=== PATIENT | female | born 1960 | race Caucasian/White ===

== ENCOUNTER 2016-05-16 12:02 | Emergency (ER) | payer OTHER ==
[~2016-05-16] VITALS: Ht 157.5 cm; Wt 54.4 kg
[~2016-05-16 12:02] MED LIST: FLEXERIL PO; IBU800 MG PO; LIORESAL 10MG T10 MG PO; MASON NATURAL2000 IU PO; MEDROL DOSEPAK1 PAC PO; MOBIC 15MG15 MG PO; MOTRIN 800MG T800 MG PO; NORCO 5-325 TA1 EACH PO; OMEGA-31 SGL PO; PERCOCET 325 MG1 TA2 PO; TRAMADOL50 MG PO; ULTRAM(MONOGRAP50 MG PO; VITAMIN C1000 M1 PO
--- NOTE | 2016-05-16 12:59 | ED MVC/FALL/TRAUMA COMPLAINT ---
History of Present Illness General Chief Complaint: Fall Stated Complaint: L ARM/HAND/LEG PAIN S/P FALL Source: patient Exam Limitations: no limitations Vital Signs & Intake/Output Vital Signs & Intake/Output Vital Signs Date Time Temp Pulse Resp B/P Pulse O2 O2 Flow FiO2 Ox Delivery Rate 05/16 1415 98.5 76 18 128/79 98 Room Air 05/16 1210 99.1 90 20 123/78 97 Room Air Allergies Coded Allergies: NO KNOWN ALLERGIES (06/09/15) No Known Drug Allergies (06/09/15) Reconcile Medications No Known Home Medications Triage Note: PER PT SLIPPED AND FELL AT WORK, NO HEAD STRIKE, NO LOC. CO PAIN TO L ARM,, BACK ,L KNEE AND L LEG Triage Nurses Notes Reviewed? yes Onset: Abrupt Duration: constant Timing: single episode today Severity: moderate Severity Numbers: 5 Injuries/Fall Location: upper extremity, back, lower extremity Method of Injury: fall Loss of Consciousness: no loss of consciousness HPI: Patient is a 56-year-old female who presents to emergency room stating that while at work today patient slipped on a wet floor in the kitchen which she braced her fall with her left outstretched hand and fell directly on the lateral aspect of her left knee resulting in pain. Pain is described as 5-10 to the left hand and left lateral right knee. Denies any head strike. Patient can ambulate with mild pain. Patient also states that she twisted her back from the fall resulting in right lateral muscular back pain. (LORENA FISCHER) Past History Travel History Traveled to [place] past 21 day No Medical History Any Pertinent Medical History? 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 No (LORENA FISCHER) Review of Systems Review of Systems Constitutional: Reports: no symptoms. Eyes: Reports: no symptoms. Ears, Nose, Throat, Mouth: Reports: no symptoms. Respiratory: Reports: no symptoms. Cardiovascular: Reports: no symptoms. Gastrointestinal/Abdominal: Reports: no symptoms. Genitourinary: Reports: no symptoms. Musculoskeletal: Reports: see HPI, back pain, muscle pain, muscle stiffness. Skin: Reports: no symptoms. Neurological/Psychological: Reports: no symptoms. All Other Systems: Reviewed and Negative (LORENA FISCHER) Physical Exam Physical Exam General Appearance: no apparent distress, alert Comments: Well-developed well-nourished person in no acute distress HEENT: Normal EENT exam, Neck: Supple, no lymphadenopathy, normal range of motion without pain or tenderness No central spinous tenderness Back: Normal inspection, right lateral muscular point tenderness noted, no central spinous tenderness Decreased active range of motion Cardiovascular: Regular rate and rhythms no murmurs rubs or gallops, normal JVP Respiratory: Chest nontender. No respiratory distress.breath sounds clear to auscultation bilaterally Abdomen: Soft, nontender nondistended, no appreciable organomegaly. Normal bowel sounds. No ascites Extremity: No edema, no calf tenderness to palpation, normal and equal pulses. Bilateral shoulders-normal inspection nontender full active range of motion Bilateral elbows normal inspection nontender full active range of motion Left wrist normal inspection nontender full active range of motion Left hand noted tenderness to the thenar eminence Radial pulse +2 Left hip nontender full active range of motion Left knee normal inspection jaundice point tenderness noted, full active range of motion Neuro: Alert oriented x3, motor sensory normal, Skin: No appreciable rash on exposed skin, skin is warm and dry. Psych: Mood and affect is normal, memory and judgment is normal. Core Measures ACS in differential dx? No Severe Sepsis Present: No Septic Shock Present: No (LORENA FISCHER) Progress Differential Diagnosis: aoritic dissection, abd injury, C/T/L spine injury, ext injury, ICH, pelvis injury, pnemothorax, spinal cord injury Plan of Care: Orders Procedure Date/time Status XRY-KNEE, LEFT 05/16 131 Active XRY-HAND, 3 View LEFT 05/16 1317 Active Current Medications Sig/Arnoldo Start time Last Medication Dose Stop Time Status Admin Ibuprofen 600 MG ONCE ONE 05/16 1330 UNVr (Motrin) 05/16 1331 Patient had unremarkable x-ray findings for osseous injury where patient was symptomatically pain. Patient had normal steady gait on discharge and no central spinous tenderness (LORENA FISCHER) Diagnostic Imaging: Viewed by Me: Radiology Read. Radiology Impression: no acute abnormality Comments: PATIENT: VIOLA BENTON PRESENT AGE: 56 PATIENT ACCOUNT NO: [id number] : 58 LOCATION: [facility] ORDERING PHYSICIAN: LORENA TAO SERVICE DATE: 05/16/16 EXAM TYPE: RAD - XRY-HAND, LEFT EXAMINATION: XR HAND, LEFT CLINICAL INFORMATION: Trauma. Pain. COMPARISON: X-rays of the left hand on 07/05/2015. TECHNIQUE: AP, lateral, and oblique views of the left hand. FINDINGS: Reexamination shows no evidence of fracture or dislocation. Significant osteoarthritis involves the first carpometacarpal articulation as previously noted. There is loss of cartilaginous space and juxta-articular bony sclerosis with marginal osteophytes. Carpal bones are normal. The soft tissues are normal. IMPRESSION: Osteoarthritis of the first carpometacarpal joint. No fracture or dislocation. PATIENT: VIOLA BENTON PRESENT AGE: 56 PATIENT ACCOUNT NO: [id number] : 58 LOCATION: [facility] ORDERING PHYSICIAN: LORENA TAO SERVICE DATE: 05/16/16 EXAM TYPE: RAD - XRY-KNEE, LEFT EXAMINATION: XR KNEE, LEFT CLINICAL INFORMATION: Fall. Left hand pain. Left knee pain. COMPARISON: No relevant prior imaging is available. TECHNIQUE: Four views of the left knee. FINDINGS: There is no acute fracture or dislocation. Medial, lateral, and patellofemoral joint spaces are maintained. No joint effusion. Soft tissues are unremarkable. IMPRESSION: Normal left knee radiographs. (LORENA FISCHER) Departure Departure Disposition: HOME OR SELF CARE Condition: Stable Clinical Impression Primary Impression: Contusion of left hand Secondary Impressions: Cervical strain, Contusion of left knee Referrals: ILEANA BRICENO APRN (PCP/Family) ECHO HOFFMAN,NICOLE Paez Additional Instructions: As discussed begin to ice the area directly 20 minutes every 2 hours for pain and inflammation begin [id number] ibuprofen for pain and inflammation. If symptoms worsen return to emergency room. Follow-up in one week with orthopedic Dr. DODGE for further evaluation treatment if symptoms do not improve. 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 I have also reviewed all the pertinent lab results and diagnostic results. I agree with the findings and the plan of care as documented in the PA's/MOBILE PRODUCT MANAGER's documentation. x I have reviewed the ED Record and agree with the PA's/MOBILE PRODUCT MANAGER's documentation. [] Additions or exceptions (if any) to the PAs/MOBILE PRODUCT MANAGER's note and plan are summarized below: [] (SANDY HOFFMAN,LENI)
--- NOTE | 2016-05-16 14:11 | RADIOLOGY REPORT ---
EXAMINATION: XR KNEE, LEFT CLINICAL INFORMATION: Fall. Left hand pain. Left knee pain. COMPARISON: No relevant prior imaging is available. TECHNIQUE: Four views of the left knee. FINDINGS: There is no acute fracture or dislocation. Medial, lateral, and patellofemoral joint spaces are maintained. No joint effusion. Soft tissues are unremarkable. IMPRESSION: Normal left knee radiographs.
[2016-05-16 14:15] VITALS: BP 128/79
--- NOTE | 2016-05-16 14:25 | RADIOLOGY REPORT ---
EXAMINATION: XR HAND, LEFT CLINICAL INFORMATION: Trauma. Pain. COMPARISON: X-rays of the left hand on 07/05/2015. TECHNIQUE: AP, lateral, and oblique views of the left hand. FINDINGS: Reexamination shows no evidence of fracture or dislocation. Significant osteoarthritis involves the first carpometacarpal articulation as previously noted. There is loss of cartilaginous space and juxta-articular bony sclerosis with marginal osteophytes. Carpal bones are normal. The soft tissues are normal. IMPRESSION: Osteoarthritis of the first carpometacarpal joint. No fracture or dislocation.
== END 2016-05-16 14:41 ==
LOC: ERH 12:02
DX: S16.1XXA Strain of muscle, fascia and tendon at neck level, initial encounter (principal); S80.02XA Contusion of left knee, initial encounter; S60.222A Contusion of left hand, initial encounter; W01.0XXA Fall on same level from slipping, tripping and stumbling without subsequent striking against object, initial encounter
CPT/HCPCS: 73130-LT; 73560-LT

== ENCOUNTER → 2017-06-19 | Day surgery (SDC) | payer OTHER ==
--- NOTE | 2017-06-18 18:31 | History & Physical Pre-Op ---
General Information and HPI History of Present Illness: Patient is a 57-year-old 2 para 2 with 2 cervical polyps examination presents today for D&C hysteroscopy polypectomy. Allergies/Medications Allergies: Coded Allergies: No Known Allergies (06/16/17) Home Med list Calcium Carbonate/Vitamin D3 (Calcium 500 + D Tablet) (Unknown Strength) TABLET (Unknown Dose) PO DAILY SUPPLEMENT (Reported) Cyanocobalamin (Vitamin B-12) (Unknown Strength) TABLET (Unknown Dose) PO DAILY SUPPLEMENT (Reported) Magnesium Oxide (Magnesium) (Unknown Strength) CAPSULE (Unknown Dose) PO DAILY SUPPLEMENT (Reported) Past History Medical History Neurological: NONE EENT: NONE Cardiovascular: NONE Respiratory: NONE Gastrointestinal: NONE Hepatic: NONE Renal: NONE Musculoskeletal: NONE Psychiatric: anxiety Endocrine: NONE Blood Disorders: NONE Cancer(s): NONE 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 EENTM: Reports: no symptoms. Cardiovascular: Reports: no symptoms. Respiratory: Reports: no symptoms. GI: Reports: no symptoms. Genitourinary: Reports: no symptoms. Musculoskeletal: Reports: no symptoms. Skin: Reports: no symptoms. Neurological/Psychological: Reports: no symptoms. Hematologic/Endocrine: Reports: no symptoms. Immunologic/Allergic: Reports: no symptoms. All Other Systems: Reviewed and Negative Exam & Diagnostic Data Last 24 Hrs of Vital Signs/I&O HEENT: NCAT Chest: CTA CV: nl S1S2 Pelvic: deferrred to OR Ext: no c/c/e Assessment/Plan Assessment/Plan: endometrial polyp D&C hysteroscopy As Ranked By This Provider Problem List: 1. Endocervical polyp
[~2017-06-19] VITALS: Ht 154.9 cm; Wt 54.4 kg
[~2017-06-19] MED LIST changes: +CALCIUM 500 +1 EAC5 PO; +MAGNESIUM500 M2 PO; +VITAMIN B-121000 MC3 PO
--- NOTE | 2017-06-20 10:01 | History & Physical Pre-Op ---
General Information and HPI Allergies/Medications Allergies: Coded Allergies: No Known Allergies (06/16/17) Home Med list Calcium Carbonate/Vitamin D3 (Calcium 500 + D Tablet) (Unknown Strength) TABLET (Unknown Dose) PO DAILY SUPPLEMENT (Reported) Cyanocobalamin (Vitamin B-12) (Unknown Strength) TABLET (Unknown Dose) PO DAILY SUPPLEMENT (Reported) Magnesium Oxide (Magnesium) (Unknown Strength) CAPSULE (Unknown Dose) PO DAILY SUPPLEMENT (Reported) Past History Medical History Neurological: NONE EENT: NONE Cardiovascular: NONE Respiratory: NONE Gastrointestinal: NONE Hepatic: NONE Renal: NONE Musculoskeletal: NONE Psychiatric: NONE Endocrine: NONE Blood Disorders: NONE Cancer(s): NONE 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
--- NOTE | 2017-06-20 10:04 | Operative Report ---
Operative/Inv Procedure Report Surgery Date: 06/19/17 Name of Procedure: D&C hysteroscopy polypectomy Pre-Operative Diagnosis: Endocervical polyp Post-Operative Diagnosis: Same Estimated Blood Loss: scant Surgeon/Metal Pickling Equipment Operator: Pascual Gonzalez MD Anesthesia: laryngeal mask airway Operative/Procedure Note Note: The patient was brought to the operating room placed on the OR table in this dorsal supine position. She was given adequate anesthesia and intubated with an LMA and repositioned into a modified dorsal lithotomy. She was prepped and draped in the usual sterile fashion. A weighted speculum was inserted into the vagina but held with a Rayray retractor single-tooth tenaculum was attached to the anterior lip of the cervix. The cervix was injected with 20 mL of lidocaine with epinephrine in each quadrant. 2 endocervical polyps were noted and these were cauterized with the Bovie and sent to pathology. An endocervical curettage was then performed. The uterus was then sounded to 7 cm. The cervix was serially dilated to accommodate the hysteroscope. The hysteroscope was placed into the uterus and no pathology was noted. Sharp curettage was performed using the Johnna sure instrument. At the end of the procedure the instruments were removed hemostasis was verified the patient was awakened and sent to recovery in good condition. All needle, sponge, and instrument counts were correct at the end of the procedure 2.
== END ==
LOC: STS 02:10
DX: N84.1 Polyp of cervix uteri (principal); M19.90 Unspecified osteoarthritis, unspecified site; F17.210 Nicotine dependence, cigarettes, uncomplicated
CPT/HCPCS: 88305; J2250